=== PATIENT | male | born 1970 | race Caucasian/White ===

== ENCOUNTER 2020-12-13 02:19 | Emergency (ER) | payer OTHER ==
[~2020-12-13] VITALS: Ht 188 cm; Wt 99.8 kg
--- NOTE | 2020-12-13 02:50 | NUR ---
bibs for c.o r flank pain x 2 hrs. no dysuria, +hematuria, w/ pmh of kidney stone. 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 urine sample obtained and pt was placed in bed 12. VSS. will cont to monitor ,
[2020-12-13] MEDS ORDERED: HYDROMORPHONE 1 MG/1 ML DISP.SYRIN ONE (02:56)
[2020-12-13] MEDS ORDERED: ONDANSETRON HCL/PF 4 MG/2 ML VIAL ONE (02:56)
[2020-12-13] MEDS ORDERED: ONDANSETRON HCL/PF 4 MG/2 ML VIAL IVP ONE (03:00)
[2020-12-13] MEDS ORDERED: MORPHINE SULFATE INJ 2 MG/ML DISP.SYRIN IV ONE (03:00)
[2020-12-13] MEDS ORDERED: HYDROMORPHONE INJ 2 MG/ML DISP.SYRIN IV ONE (03:00)
[2020-12-13] MEDS ORDERED: IV NS 0.9% 1,000 ML BAG IV ONE (03:00)
[2020-12-13 03:09] LABS: BASOPHILS # (AUTO) 0.1 /CMM (0.0-0.2); BASOPHILS % (AUTO) 1.1 % (0.0-2.0); EOSINOPHILS % (AUTO) 3.4 % (0.0-6.0); HEMATOCRIT 45 % (39-51); HEMOGLOBIN 15.2 g/dL (13.5-17.5); LYMPHOCYTES # (AUTO) 1.3 /CMM (0.8-4.8); LYMPHOCYTES % (AUTO) 20.1 % (20.0-44.0); MEAN CORPUSCULAR HGB CONC 34 g/dl (31.0-36.0); MEAN CORPUSCULAR VOLUME 93 fL (80-96); MONOCYTES # (AUTO) 0.5 /CMM (0.1-1.30); MONOCYTES % (AUTO) 7.6 % (2.0-12.0); NEUTROPHILS # (AUTO) 4.3 /CMM (1.8-8.9); NEUTROPHILS % (AUTO) 67.8 % (43.0-81.0); PLATELET COUNT (AUTO) 182 /CMM (150-450); RED BLOOD CELL COUNT(AUTO) 4.78 MIL/uL (4.5-6.0); WHITE BLOOD COUNT (AUTO) 6.4 K/uL (4.3-11.0)
[2020-12-13 03:10] LABS: BILIRUBIN,URINE MODERATE (NEGATIVE); COLOR,URINE RED (YELLOW); LEUKOCYTE ESTERASE ,URINE NEGATIVE (NEGATIVE); NITRITE, URINE POSITIVE (NEGATIVE); PH,URINE 6.5 (5.0-8.0); PROTEIN,URINE 30 mg/dl (NEGATIVE); UGLUCOSE NEGATIVE (NEGATIVE)
[2020-12-13] MEDS ORDERED: MORPHINE SULFATE INJ 4 MG/ML DISP.SYRIN ONE (03:12)
[2020-12-13 03:15] LABS: BACTERIA,URINE Rare /HPF (None Seen); RBC,URINE TOO NUMEROUS TO COUN /HPF (0-2)
[2020-12-13 03:16] LABS: SQUAMOUS EPITHELIAL CELL,UR None Seen /HPF (None Seen)
[2020-12-13 03:17] LABS: CALCIUM, SERUM 8.8 mg/dL (8.5-10.1); POTASSIUM 3.8 mmol/L (3.5-5.1)
[2020-12-13 03:24] LABS: ALBUMIN 4.2 g/dL (3.4-5.0); BILIRUBIN,DIRECT 0.2 mg/dL (0.0-0.2); BILIRUBIN,TOTAL 0.7 mg/dL (0.2-1.0); TOTAL PROTEIN, SERUM 6.8 g/dL (6.4-8.2)
--- NOTE | 2020-12-13 03:26 | NUR ---
PT TAKEN TO RADIOLOGY VIA CT
[2020-12-13 06:17] VITALS: BP 139/76
== END 2020-12-13 06:18 | disposition home or self-care (01) ==
LOC: ER 02:22
DX: N13.2 Hydronephrosis with renal and ureteral calculous obstruction (principal); Z88.0 Allergy status to penicillin
CPT/HCPCS: 36415; 74176; 80048; 80076; 81001; 83690; 85025; 87086; 96361; 96374; 96375; 99284; J2270; J2405; J7030; J1170

== ENCOUNTER 2022-01-13 17:04 | Inpatient (IN) | payer SELFPAY ==
[~2022-01-13] VITALS: Ht 188 cm; Wt 99.8 kg
--- NOTE | 2022-01-13 17:21 | NUR ---
TO ER BED 2, LT FLANK PAIN STARTED 4PM TODAY P/S 09/02. HX OF KIDNEY STONES, AAOX3, BREATHING EVEN AND NON LABORED, DENIES SOB, AWAITING MD ORDERS
[2022-01-13] MEDS ORDERED: KETOROLAC TROMETHAMINE 15 MG/ML VIAL ONE (17:55)
[2022-01-13] MEDS ORDERED: ONDANSETRON HCL/PF 4 MG/2 ML VIAL ONE ×2 (17:55→20:05)
[2022-01-13] MEDS ORDERED: MORPHINE SULFATE INJ 4 MG/ML DISP.SYRIN ONE ×2 (17:56→20:06)
[2022-01-13] MEDS ORDERED: IV NS 0.9% 500 ML BAG IV ONE (18:00)
[2022-01-13] MEDS ORDERED: MORPHINE SULFATE INJ 2 MG/ML DISP.SYRIN IV ONE ×2 (18:00→20:30)
[2022-01-13] MEDS ORDERED: ONDANSETRON HCL/PF 4 MG/2 ML VIAL IVP ONE ×2 (18:00→20:30)
[2022-01-13] MEDS ORDERED: KETOROLAC TROMETHAMINE INJ 30 MG/ML VIAL IV ONE (18:00)
[2022-01-13 18:18] LABS: BASOPHILS # (AUTO) 0.1 K/uL (0.0-0.2); BASOPHILS % (AUTO) 1.2 % (0.0-2.0); EOSINOPHILS % (AUTO) 1.4 % (0.0-6.0); HEMATOCRIT 44 % (39-51); HEMOGLOBIN 15.1 g/dL (13.5-17.5); LYMPHOCYTES # (AUTO) 1.2 K/uL (0.8-4.8); LYMPHOCYTES % (AUTO) 20.8 % (20.0-44.0); MEAN CORPUSCULAR HGB CONC 34 g/dl (31.0-36.0); MEAN CORPUSCULAR VOLUME 91 fL (80-96); MONOCYTES # (AUTO) 0.5 K/uL (0.1-1.30); MONOCYTES % (AUTO) 8.7 % (2.0-12.0); NEUTROPHILS # (AUTO) 3.9 K/uL (1.8-8.9); NEUTROPHILS % (AUTO) 67.9 % (43.0-81.0); PLATELET COUNT (AUTO) 226 K/uL (150-450); RED BLOOD CELL COUNT(AUTO) 4.84 MIL/uL (4.5-6.0); WHITE BLOOD COUNT (AUTO) 5.8 K/uL (4.3-11.0)
--- NOTE | 2022-01-13 18:30 | NUR ---
PT BEING TAKEN TO CT VIA JERRY
[2022-01-13 18:35] LABS: ALBUMIN 4.3 g/dL (3.4-5.0); BILIRUBIN,DIRECT 0.3 mg/dL (0.0-0.2); BILIRUBIN,TOTAL 1.5 mg/dL (0.2-1.0); CALCIUM, SERUM 9.1 mg/dL (8.5-10.1); POTASSIUM 3.9 mmol/L (3.5-5.1); TOTAL PROTEIN, SERUM 7.2 g/dL (6.4-8.2)
[2022-01-13 18:48] LABS: BILIRUBIN,URINE SMALL (NEGATIVE); COLOR,URINE YELLOW (YELLOW); LEUKOCYTE ESTERASE ,URINE NEGATIVE (NEGATIVE); NITRITE, URINE NEGATIVE (NEGATIVE); PH,URINE 5.5 (5.0-8.0); PROTEIN,URINE TRACE mg/dl (NEGATIVE); UGLUCOSE NEGATIVE (NEGATIVE); UROBILINOGEN,URINE 0.2 EU/dL (0.2)
[2022-01-13 19:01] LABS: BACTERIA,URINE 1+ /HPF (None Seen); MUCUS,URINE Few /LPF (None Seen); RBC,URINE 51-80 /HPF (0-2); WBC,URINE 0-2 /HPF (0-3)
[2022-01-13] MEDS ORDERED: TAMSULOSIN 0.4 MG CAP.SR.24H PO ONE (19:30)
[2022-01-13] MEDS ORDERED: IV NS 0.9% 1,000 ML BAG IV ONE ×2 (19:30→20:30)
[2022-01-13] MEDS ORDERED: TAMSULOSIN 0.4 MG CAP.SR.24H ONE (19:31)
--- NOTE | 2022-01-13 20:04 | NUR ---
Michele trinh in ED - 01/13/22 at 2007 by DEREJE PT TAKEN TO CT VIA JERRY
[2022-01-13] MEDS ORDERED: CEFTRIAXONE 1GM BAG (ER ONLY) 50 ML IV ONE (20:05)
--- NOTE | 2022-01-13 20:16 | NUR ---
COVID SWAB COLLECTED AND SENT TO LAB
[2022-01-13] MEDS ORDERED: CEFTRIAXONE 1GM BAG (ER ONLY) 1 GM/50 ML PIGGYBACK IV ONE (20:30)
[2022-01-13] MEDS ORDERED: CIPROFLOXACIN IV RTU 400 MG in PREMIX 1 EA IV SCH (20:30)
--- NOTE | 2022-01-13 20:32 | NUR ---
MRSA SWAB COLLECTED AND SENT TO LAB. PATIENT'S BELONGINGS LIST DONE.
[2022-01-13] MEDS ORDERED: CIPROFLOXACIN IV RTU 200 ML IV ONE (20:36)
--- NOTE | 2022-01-13 21:20 | NUR ---
BOBBY MERINO BUSINESS OPERATIONS MANAGER AT PT'S BEDSIDE
[2022-01-13] MEDS ORDERED: Z GUARD REMEDY 4 OZ OINT TP PRN (21:30)
[2022-01-13] MEDS ORDERED: ZOLPIDEM TARTRATE 5 MG TABLET PO PRN (21:30)
[2022-01-13] MEDS ORDERED: ACETAMINOPHEN 325 MG TABLET PO PRN (21:30)
[2022-01-13] MEDS ORDERED: MAGNESIUM HYDROXIDE 30 ML UDC PO PRN (21:30)
[2022-01-13] MEDS ORDERED: MAG HYDROX/AL HYDROX/SIMETH 30 ML UDC PO PRN (21:30)
[2022-01-13] MEDS ORDERED: KETOROLAC TROMETHAMINE INJ 30 MG/ML VIAL IV PRN (21:30)
[2022-01-13] MEDS ORDERED: ONDANSETRON HCL/PF 4 MG/2 ML VIAL IVP PRN (21:30)
--- NOTE | 2022-01-13 22:04 | NUR ---
MS 324-1
--- NOTE | 2022-01-13 22:17 | NUR ---
REPORT GIVEN TO JANICE
--- NOTE | 2022-01-13 22:42 | NUR ---
PT TRANSPORTED TO ROOM 324 WITHOUT INCIDENT VIA GURNEY. PT IN STABLE CONDITION AT TIME OF TRANSFER.
[2022-01-13 22:45] VITALS: BP 132/89
--- NOTE | 2022-01-13 22:45 | NUR ---
MS HEALTH AND WELLNESS DIRECTOR NOTES PATIENT ARRIVED ON UNIT VIA GURNEY WITH ER NURSE. RECEIVED PATIENT LAYING AWAKE IN BED. A/O X4. PATIENT WITH REGULAR AND UNLABORED BREATHING ON ROOM AIR, TOLERATED WELL. NO SIGNS OR SYMPTOMS OF DISTRESS NOTED AT THIS TIME. NO COMPLAINS OF PAIN OR DISCOMFORT AT THIS TIME. IV ACCESS RAC G #20 SL. IV ACCESS PATENT AND INTACT. SAFETY PRECAUTIONS ENFORCED WITH BED LOCKED AND AT LOWEST POSITION. SIDE RAILS UP X2. CALL LIGHT WITHIN REACH AT ALL TIMES. WILL CONTINUE TO MONITOR PATIENT.
[2022-01-13] MEDS: IV NS 0.9% 1,000 ML IV PRN (23:25)
[2022-01-13] MEDS: HYDROMORPHONE 1 MG/1 ML DISP.SYRIN IV PRN (23:25)
[2022-01-14 05:55] LABS: BASOPHILS % (AUTO) 0.6 % (0.0-2.0); EOSINOPHILS % (AUTO) 0.5 % (0.0-6.0); HEMATOCRIT 37 % (39-51); HEMOGLOBIN 12.8 g/dL (13.5-17.5); LYMPHOCYTES % (AUTO) 16.5 % (20.0-44.0); MEAN CORPUSCULAR HGB CONC 34 g/dl (31.0-36.0); MEAN CORPUSCULAR VOLUME 92 fL (80-96); MONOCYTES # (AUTO) 0.6 K/uL (0.1-1.30); MONOCYTES % (AUTO) 10.3 % (2.0-12.0); NEUTROPHILS # (AUTO) 4.3 K/uL (1.8-8.9); NEUTROPHILS % (AUTO) 72.1 % (43.0-81.0); PLATELET COUNT (AUTO) 171 K/uL (150-450); RED BLOOD CELL COUNT(AUTO) 4.06 MIL/uL (4.5-6.0); WHITE BLOOD COUNT (AUTO) 5.9 K/uL (4.3-11.0)
[2022-01-14 06:32] LABS: CALCIUM, SERUM 7.7 mg/dL (8.5-10.1); CREATININE 0.9 mg/dL (0.6-1.3); MAGNESIUM 2.2 mg/dL (1.8-2.4); PHOSPHORUS 4.2 mg/dL (2.5-4.9); POTASSIUM 3.8 mmol/L (3.5-5.1)
--- NOTE | 2022-01-14 06:43 | NUR ---
MS RN CLOSING NOTES PATIENT STILL LAYING AWAKE IN BED. A/O X4. PATIENT WITH REGULAR AND UNLABORED BREATHING ON ROOM AIR, TOLERATED WELL. NO SIGNS OR SYMPTOMS OF DISTRESS NOTED AT THIS TIME. NO COMPLAINS OF PAIN OR DISCOMFORT AT THIS TIME. IV ACCESS RAC G #20 INFUSING NS @100 ML/HR. IV ACCESS PATENT AND INTACT. SAFETY PRECAUTIONS ENFORCED WITH BED LOCKED AND AT LOWEST POSITION. SIDE RAILS UP X2. CALL LIGHT WITHIN REACH AT ALL TIMES. WILL ENDORSE CONTINUITY OF CARE TO DAY SHIFT NURSE.
--- NOTE | 2022-01-14 07:30 | NUR ---
MS RN OPENING NOTES RECEIVED PATIENT AWAKE ON BED AND A/O X4. ON ROOM AIR TOLERATING WELL. NO SOB NOTED. NOT IN DISTRESS. WITH NO COMPLAINTS OF PAIN OR DISCOMFORT AT THIS TIME. WITH IV ACCESS AT RIGHT AC G20 WITH IVF NS AT 100ML/HR INFUSING WELL. SAFETY MEASURES IN PLACED. CALL LIGHT WITHIN REACH. BED ON LOWEST LOCKED POSITION, SIDE RAILS UP X2. WILL CONTINUE TO MONITOR.
[2022-01-14 08:00] VITALS: BP 111/67
[2022-01-14] MEDS: CIPROFLOXACIN IV RTU 400 MG in PREMIX 1 EA IV SCH ×2 (08:25→20:59)
[2022-01-14] MEDS: IV NS 0.9% 1,000 ML IV PRN ×2 (09:44→20:59)
[2022-01-14] MEDS: HYDROMORPHONE 1 MG/1 ML DISP.SYRIN IV PRN (10:39)
--- NOTE | 2022-01-14 11:30 | NUR ---
RN NOTES ENDORSED PATIENT TO SKYLAR KIM.
--- NOTE | 2022-01-14 14:57 | NUR ---
RN NOTES RECEIVED PATIENT AWAKE RESTING IN BED, A/O X4., IV INTACT - ACCESS AT RIGHT AC G20 WITH IVF NS AT 100ML/HR INFUSING WELL, PATENT FLUSHING WELL TOLERATING LAST ABT WITH NO ADVERSE REACTIONS NOTED, ON ROOM AIR TOLERATING WELL. NO SOB NOTED. NOT IN DISTRESS. HAS NO COMPLAINTS OF PAIN OR DISCOMFORT AT THIS TIME WHEN RESTING BUT STATED WITH MOVEMENT CHANGING POSITIONS OR WHEN GETTING UP TO USE REST ROOM ITS SORE NEAR KIDNEYS, SAFETY MEASURES IN PLACE, CALL LIGHT WITHIN REACH. BED ON LOWEST LOCKED POSITION, SIDE RAILS UP X2. WILL CONTINUE TO MONITOR.
[2022-01-14 16:00] VITALS: BP 119/70
--- NOTE | 2022-01-14 19:30 | NUR ---
RN OPENING NOTES RECEIVED PT IN BED, AWAKE, ON PHONE. AOx4, ABLE TO MAKE NEEDS KNOWN. ON RA AND TOLERATING WELL. NO SOB NOTED. NO S/SX OF RESPIRATORY DISTRESS NOTED. IV ACCESS IN RAC #20G RUNNING NS @ 100 ML/HR. SAFETY PRECAUTIONS IN PLACE: BED IN LOWEST, LOCKED POSITION, SIDERAILS UPx2, AND BRAKES ON. TABLE AND CALL LIGHT WITHIN REACH. WILL CONTINUE TO MONITOR.
[2022-01-14 20:00] VITALS: BP 125/76
[2022-01-14] MEDS ORDERED: TAMSULOSIN 0.4 MG CAP.SR.24H PO SCH (22:00)
[2022-01-15] MEDS ORDERED: FLUTICASONE PROPIONATE 16 GM BOTTLE NS PRN (02:00)
[2022-01-15] MEDS: IV NS 0.9% 1,000 ML IV PRN (06:01)
--- NOTE | 2022-01-15 06:54 | NUR ---
RN CLOSING NOTES PT IN BED, ASLEEP, AWAKENS TO VERBAL STIMULI. AOx4, ABLE TO MAKE NEEDS KNOWN. ON RA AND TOLERATING WELL. NO SOB NOTED. NO S/SX OF RESPIRATORY DISTRESS NOTED. IV ACCESS IN RAC #20G RUNNING NS @ 100 ML/HR. ALL NEEDS MET. PT KEPT CLEAN AND DRY. ALL ORDERS CARRIED OUT. SAFETY PRECAUTIONS IN PLACE: BED IN LOWEST, LOCKED POSITION, SIDERAILS UPx2, AND BRAKES ON. TABLE AND CALL LIGHT WITHIN REACH. WILL ENDORSE TO ONCOMING SHIFT FOR JAY.
[2022-01-15 08:00] VITALS: BP 136/91
[2022-01-15] MEDS: CIPROFLOXACIN IV RTU 400 MG in PREMIX 1 EA IV SCH (08:45)
[2022-01-15] MEDS ORDERED: HYDR-4303 PO (09:20)
[2022-01-15] MEDS ORDERED: Tamsulosin PO (09:20)
[2022-01-15] MEDS ORDERED: LEVO500T90 PO (09:20)
[2022-01-15] MEDS ORDERED: TAMS-12 PO (09:21)
--- NOTE | 2022-01-15 10:20 | NUR ---
received pt. in am alert and oriented x3.no complaints offered.dr. abreu in and dc order given.rxs sent to pt's pharmacy.all papers signed.hep lock removed.pt. aware to see .escorted to lobby for dc by robert.
== END 2022-01-15 10:00 | disposition home or self-care (01) | DRG 690 ==
LOC: ER 17:07 → MED 22:05 → TELE 22:07 → MED 23:09
PROVIDERS: ADMIT Nurse Practitioner Acute Care; ATTEND Internal Medicine
DX: N30.00 Acute cystitis without hematuria (principal); N13.2 Hydronephrosis with renal and ureteral calculous obstruction; M79.3 Panniculitis, unspecified; Z87.442 Personal history of urinary calculi; E80.6 Other disorders of bilirubin metabolism; Z88.0 Allergy status to penicillin; Z20.822 Contact with and (suspected) exposure to COVID-19
CPT/HCPCS: 36415; 80048-TC; 80076-TC; 81001; 83605-TC; 83690-TC; 83735-TC; 84100-TC; 85025-TC; 87081-TC; 87086-TC; A4216; C9803; G0378; J0696; J0744; J1170; J1885; J2270; J2405; J7030